=== PATIENT | male | born 1995 | race Caucasian/White ===

== ENCOUNTER 2018-01-27 07:04 | Day surgery (SDC) | payer OTHER ==
[~2018-01-27 07:04] MED LIST: CEFOXITIN SODIUM 2 GM in DEXTROSE 5%-WATER 100 ML IV PRN
[2018-01-27 09:18] LABS: HEMATOCRIT 45.1 % (37.9-51.0); HEMOGLOBIN 15.6 g/dL (13.5-17.0); MEAN CORPUSCULAR HGB CONC 34.6 g/dL (32.0-36.0); MEAN CORPUSCULAR VOLUME 92 fl (80-97); PLATELET COUNT 187 10^3/uL (150-450); RED BLOOD COUNT 4.88 10^6/uL (4.35-5.55); RED CELL DISTRIBUTION WIDTH 12.9 % (11.5-14.0); WHITE BLOOD COUNT 9.3 10^3/uL (4.0-10.5)
[2018-01-27] MEDS ORDERED: BUPIVACAINE HCL 0.5 % INJ/PF 30 ML SDV ONE (09:49)
[2018-01-27] MEDS ORDERED: ACETAMINOPHEN 1,000 MG/100 ML RTUPB IV ONE (09:52)
[2018-01-27] MEDS ORDERED: PROPOFOL INJ 200 MG/20 ML VIAL IV ONE (09:52)
[2018-01-27] MEDS ORDERED: FENTANYL CITRATE INJ/PF 100 MCG/2 ML AMPUL ONE (09:52)
[2018-01-27] MEDS ORDERED: ONDANSETRON HCL INJ/PF 4 MG/2 ML SDV ONE (09:52)
[2018-01-27] MEDS ORDERED: DEXAMETHASONE SOD PHOSPHATE INJ 4 MG/1 ML VIAL ONE (09:52)
[2018-01-27] MEDS ORDERED: MIDAZOLAM 2 MG/2 ML INJ ONE (09:52)
[2018-01-27] MEDS ORDERED: ONDANSETRON HCL INJ/PF 4 MG/2 ML SDV IV PRN (10:21)
[2018-01-27] MEDS ORDERED: MORPHINE SULFATE 10 MG/ML INJ IV PRN (10:21)
[2018-01-27] MEDS ORDERED: PROMETHAZINE HCL INJ 25 MG/1 ML VIAL IV PRN ×2 (10:21)
[2018-01-27] MEDS ORDERED: MEPERIDINE HCL/PF INJ 25 MG/1 ML DISP.SYRIN IV PRN (10:21)
[2018-01-27] MEDS ORDERED: DIPHENHYDRAMINE HCL 50 MG/ML VIAL IV PRN (10:21)
[2018-01-27] MEDS ORDERED: FENTANYL CITRATE INJ/PF 100 MCG/2 ML AMPUL IV PRN ×3 (10:21)
[2018-01-27] MEDS ORDERED: OXYCODONE-ACETAMINOPHEN 5-325 MG TABLET PO PRN ×2 (10:21)
--- NOTE | 2018-01-27 11:08 | Discharge Summary ---
Discharge Summary (SDC) - Discharge Final Diagnosis: Pilonidal cyst. Date of Surgery: 01/27/18 Discharge Date: 01/27/18 Condition: Stable Treatment or Instructions: Discharge home. Diet as tolerated. Activity: Nonstrenuous. Follow-up with me in 2 weeks. [place] 10/325 mg p.o. every 6 hours as needed for pain. Okay to shower on Wednesday. Tub baths or swimming 2 weeks. Avoid pressure on the sacrum. Discharge Diet: As Tolerated Respiratory Treatments at Home: Deep Breathing/Coughing, Incentive Spirometer Discharge Activity: Balance Activity w/Rest Home Care Assistance: None Needed Report the Following to Your Physician Immediately: Shortness of Breath, Nausea , Vomiting, Increase in Pain, Fever over 101 Degrees, Unusual Bleeding, Redness , Swelling, Warmth
--- NOTE | 2018-01-27 11:12 | Operative Report ---
Nonrecallable Operative Report DATE OF SURGERY: 01/27/18 PREOPERATIVE DIAGNOSIS: Pilonidal cyst. POSTOPERATIVE DIAGNOSIS: Pilonidal cyst OPERATION: Excision of pilonidal cyst. SURGEON: ELVA CHARLES ANESTHESIA: GA TISSUE REMOVED OR ALTERED: Pilonidal cyst. COMPLICATIONS: None apparent ESTIMATED BLOOD LOSS: 20 cc PROCEDURE: Drains/implants: None. Procedure in detail: After informed consent was obtained, the patient was brought in to the room and laid in the prone jackknife position. The sacrum and pilonidal area were prepped and draped in a normal sterile fashion. Incision was created encompassing the patient's fistula tract, as well as multiple midline pits. The pilonidal cyst was excised all the way down to the sacral fascia. Skin flaps were raised laterally. The deep tissue was closed using 3-0 Vicryl suture in simple running fashion. The superficial subcutaneous tissue was closed using 3-0 Vicryl suture in simple running fashion. The overlying skin was closed using 0 Vicryl suture in vertical mattress fashion. A dressing was placed, and the procedure was concluded. All sponge, instrument, and needle counts were correct 2. Condition: Stable.
[2018-01-27] MEDS ORDERED: KETOROLAC TROMETHAMINE 60 MG/2 ML SDV ONE (14:04)
[2018-01-27] MEDS ORDERED: SUCCINYLCHOLINE CHLORIDE INJ 200 MG/10 ML VIAL ONE (14:04)
[2018-01-27 15:52] VITALS: BP 107/69
== END 2018-01-27 13:05 | disposition home or self-care (01) ==
LOC: OROUT 07:04
PROVIDERS: ATTEND Surgery
DX: L05.91 Pilonidal cyst without abscess (principal); Z87.891 Personal history of nicotine dependence
CPT/HCPCS: 36415; 85027; 88305 ×2; 11770; J2250; J3490; J1100; J0694; J1885; J3010; J0330; J2405; J2704; J0131; 300